=== PATIENT | male | born 1975 | race African-American/Black ===

== ENCOUNTER 2019-05-24 09:21 | Emergency (ER) | payer OTHER ==
[~2019-05-24] VITALS: Ht 172.7 cm; Wt 111.1 kg
[2019-05-24] MEDS ORDERED: PROAIR HFA8.5 GM INH (09:48)
[2019-05-24 10:07] LABS: ABSOLUTE NEUTROPHILS 6.3 thou/uL (1.4-8.2); BASOPHILS 0.2 % (0.0-2.0); EOSINOPHILS 3.7 % (0.0-3.0); HEMATOCRIT 46.2 % (42.0-52.0); HEMOGLOBIN 15.1 gm/dL (14.0-18.0); LYMPHOCYTES 11.2 % (24.0-44.0); MCH 28.4 pg (26.0-34.0); MCHC 32.6 g/dL (28.0-37.0); MCV 87.2 fL (80.0-100.0); PLATELET COUNT 163 thou/uL (150-400); POLYS 79.9 % (36.0-66.0); RDW 13.7 % (10.5-14.5); WBC 7.9 thou/uL (4.0-11.0)
[2019-05-24 10:15] LABS: BUN 17 mg/dL (7-18); CHLORIDE 101 mmol/L (98-107); CO2 29 mmol/L (21-32); CREATININE 0.9 mg/dL (0.7-1.3); GLUCOSE 106 mg/dL (74-106); POTASSIUM 4.5 mmol/L (3.5-5.1); SODIUM 128 mmol/L (136-145)
[2019-05-24 10:21] LABS: ALBUMIN 3.6 g/dL (3.4-5.0); ANION GAP < 1 mmol/L (7-16); LIPASE 66 U/L (73-393); SGOT 32 U/L (15-37); SGPT 36 U/L (30-65); TOTAL BILIRUBIN 0.4 mg/dL (<0.1-1.0); TOTAL PROTEIN 7.7 g/dL (6.4-8.2)
[2019-05-24 11:19] LABS: URINE BILIRUBIN NEGATIVE (Negative); URINE BLOOD NEGATIVE (Negative); URINE CLARITY CLEAR; URINE COLOR YELLOW; URINE GLUCOSE-RANDOM* NEGATIVE (Negative); URINE KETONES NEGATIVE (Negative); URINE LEUKOCYTES-REFLEX TRACE (Negative); URINE NITRITE-REFLEX NEGATIVE (Negative); URINE PROTEIN (DIPSTICK) NEGATIVE (Negative)
[2019-05-24] MEDS ORDERED: PROTONIX40 M1 PO (12:28)
[2019-05-24] MEDS ORDERED: IMODIUM A-D2 MG PO (12:28)
[2019-05-24] MEDS ORDERED: ZOFRAN ODT4 MG PO (12:28)
[2019-05-24] MEDS ORDERED: PHENERGAN 25 MG25 MG PO (12:28)
[2019-05-24 12:43] VITALS: BP 149/95
== END 2019-05-24 12:40 | disposition home or self-care (01) ==
LOC: ER 09:21
PROVIDERS: Emergency Medicine
DX: A08.4 Viral intestinal infection, unspecified (principal); R11.2 Nausea with vomiting, unspecified; J45.909 Unspecified asthma, uncomplicated; F31.9 Bipolar disorder, unspecified; F41.9 Anxiety disorder, unspecified; F17.210 Nicotine dependence, cigarettes, uncomplicated